=== PATIENT | male | born 1960 | race African-American/Black ===

== ENCOUNTER 2023-08-06 13:35 | Emergency (ER) | payer OTHER ==
[~2023-08-06] VITALS: Ht 182.9 cm; Wt 100.0 kg
[2023-08-06 14:16] VITALS: BP 156/107; PULSE 86; RESP 18; TEMP 98.5; O2SAT 100
[2023-08-06] MEDS ORDERED: METOCLOPRAMIDE HCL 10MG TABLET PO ONE (18:15)
[2023-08-06] MEDS ORDERED: MAGNESIUM/ALUMINUM HYDROXIDE/SIMETHICONE 30ML UDC PO ONE (18:15)
[2023-08-06 19:40] LABS: BASOPHILS % 0.7 % (0.0-2.0); HEMATOCRIT. 41.8 % (42.0-52.0); HEMOGLOBIN. 13.2 g/dL (14.0-18.0); LYMPHOCYTES % 26.6 % (20.0-50.0); MEAN CORPUSCULAR HEMOGLOBIN 27.3 pg (28.0-32.0); MEAN CORPUSCULAR HGB CONC 31.6 g/dL (31.0-37.0); MEAN CORPUSCULAR VOLUME 86.3 fL (80.0-94.0); MEAN PLATELET VOLUME 8.8 fl (7.4-10.4); MONOCYTES % 13.1 % (2.0-8.0); NEUTROPHILS % 52.6 % (40.0-76.0); PLATELET 256 x1000/uL (130-400); RED BLOOD CELL COUNT 4.84 mill/uL (4.7-6.1); WHITE BLOOD COUNT 3.6 x1000/uL (4.5-11.0)
[2023-08-06 19:42] LABS: CHLORIDE 108 mEq/L (98-107); INDEX HEMOLYSI 1 (1-3); INDEX ICTERIC 1 (1-4); INDEX LIPEMIC 1 (1-3); POTASSIUM 4.2 mEq/L (3.5-5.1); SODIUM 139 mEq/L (136-145)
[2023-08-06 19:59] LABS: ALANINE AMINOTRANSFERASE 34 IU/L (13-61); ALBUMIN 3.5 g/dL (3.4-5.0); ASPARTATE AMINOTRANSFERASE 17 IU/L (15-37); BILIRUBIN TOTAL 1.3 mg/dL (0.1-1.0); CALCIUM 9.1 mg/dL (8.5-10.1); CARBON DIOXIDE 31 mEq/L (21-32); CREATININE 1.4 mg/dL (0.6-1.3); GLUCOSE 81 mg/dL (70-105); NT PRO B-TYPE NATRIURETIC PEP 4610 pg/mL (5-125); PROTEIN TOTAL 7.9 g/dL (6.0-8.3); THYROID STIMULATING HORMONE 0.67 uIU/mL (0.36-3.74); TROPONIN I HIGH SENSITIVITY 14 ng/L (<78); UREA NITROGEN BLOOD 13 mg/dL (7-21)
[2023-08-06] MEDS ORDERED: ASPIRIN 81MG TABLET PO ONE (20:15)
[2023-08-06] MEDS ORDERED: DIPHENHYDRAMINE 50MG/ML VIAL IV ONE (20:30)
[2023-08-06] MEDS ORDERED: METOCLOPRAMIDE HCL 10MG/2ML VIAL IV ONE (20:30)
[2023-08-06 20:32] LABS: INR 1.1; PROTHROMBIN TIME 11.8 sec (9.6-11.0)
== END 2023-08-06 21:31 | disposition left against medical advice (07) ==
LOC: ER 13:35
DX: R06.6 Hiccough (principal); I10 Essential (primary) hypertension; E78.00 Pure hypercholesterolemia, unspecified; Z98.890 Other specified postprocedural states
CPT/HCPCS: 99285; 71045; 80053; 83880; 83690; 84443; 85025; 85379; 85610; 85730; 84484; 36415; 93005; J8597

== ENCOUNTER 2025-06-22 04:37 | Inpatient (IN) | payer OTHER ==
[~2025-06-22] VITALS: Ht 185.4 cm; Wt 88.5 kg
[2025-06-22 04:40] VITALS: O2SAT 100
[2025-06-22 05:36] LABS: HEMATOCRIT. 45.0 % (42.0-52.0); HEMOGLOBIN. 14.2 g/dL (14.0-18.0); MEAN PLATELET VOLUME 9.5 fl (7.4-10.4); PLATELET 230 x1000/uL (130-400); RED BLOOD CELL COUNT 5.06 mill/uL (4.7-6.1); RED CELL DISTRIBUTION WIDTH 13.8 % (11.6-14.6)
[2025-06-22] MEDS: ONDANSETRON HCL 4MG/2ML INJ IV ONE (05:48)
[2025-06-22 05:49] LABS: CREATININE 1.3 mg/dL (0.6-1.3)
[2025-06-22] MEDS: ASPIRIN 325MG TABLET PO ONE (05:49)
[2025-06-22 05:50] LABS: TROPONIN I HIGH SENSITIVITY 13 ng/L (3.0-53); UREA NITROGEN BLOOD 13 mg/dL (9-23)
[2025-06-22 05:51] LABS: ASPARTATE AMINOTRANSFERASE 30 IU/L (<34); BILIRUBIN DIRECT 0.3 mg/dL (<=3.0)
[2025-06-22 05:52] LABS: BILIRUBIN TOTAL 0.9 mg/dL (0.1-1.0); PHOSPHORUS 2.8 mg/dL (2.5-4.9); PROTEIN TOTAL 7.6 g/dL (6.0-8.3)
[2025-06-22 05:54] LABS: ETHANOL BLOOD < 10 mg/dL (<10)
[2025-06-22 06:08] LABS: INR 1.2
[2025-06-22 07:30] LABS: TROPONIN I HIGH SENSITIVITY 11 ng/L (3.0-53)
[2025-06-22 09:32] VITALS: BP 112/86; PULSE 70; RESP 20; TEMP 36.3068
[2025-06-22 09:51] VITALS: BP 112/86; PULSE 70; RESP 20; TEMP 36.3; O2SAT 100
[2025-06-22] MEDS ORDERED: ACETAMINOPHEN 325MG TABLET PO PRN ×2 (10:45)
[2025-06-22] MEDS ORDERED: CLONIDINE 0.1MG TABLET PO PRN (10:45)
[2025-06-22] MEDS ORDERED: IPRATROPIUM/ALBUTEROL 0.5-3(2.5)MG/3ML NEB HHN PRN (10:45)
[2025-06-22] MEDS ORDERED: DOCUSATE SODIUM 100MG CAPSULE PO PRN (10:45)
[2025-06-22] MEDS: ENOXAPARIN 40MG/0.4ML SYR SUBCUT SCH (11:51)
[2025-06-22 12:00] VITALS: BP 106/82; PULSE 73; RESP 16; TEMP 36.3; O2SAT 99
[2025-06-22] MEDS ORDERED: SACU1TAB MT (13:40)
[2025-06-22] MEDS ORDERED: CARV3.1242 PO (13:40)
[2025-06-22] MEDS ORDERED: ASPI-1497 PO (13:40)
[2025-06-22] MEDS ORDERED: SUCR1TAB PO (13:40)
[2025-06-22] MEDS ORDERED: CLAR-44 PO (13:40)
[2025-06-22] MEDS ORDERED: AMOX-494 MT (13:40)
[2025-06-22] MEDS ORDERED: SPIR25TA6 PO (13:40)
[2025-06-22 16:00] VITALS: BP_SYST 102; BP_SYST 106; BP_SYST 129; BP_DIAS 62; BP_DIAS 80; BP_DIAS 82; PULSE 60; PULSE 73; PULSE 81; RESP 16; RESP 17; TEMP 36.1; TEMP 36.3; TEMP 36.4; O2SAT 97; O2SAT 99
[2025-06-22] MEDS: ASPIRIN 81MG EC TABLET PO SCH (17:07)
[2025-06-22] MEDS: SPIRONOLACTONE 25MG TABLET PO SCH (17:08)
[2025-06-22 17:30] LABS: TROPONIN I HIGH SENSITIVITY 12 ng/L (3.0-53)
[2025-06-22 17:35] LABS: EOSINOPHILS % MANUAL 3.0 % (0.0-5.0); LYMPHOCYTES % MANUAL 27.0 % (20.0-50.0); MONOCYTES % MANUAL 14.0 % (2.0-8.0); NEUTROPHILS % MANUAL 56.0 % (45.0-75.0); PLATELET ESTIMATE NORMAL
[2025-06-22 18:20] LABS: CLARITY URINE CLEAR (CLEAR); GLUCOSE URINE NEGATIVE (NEGATIVE); KETONES URINE TRACE (NEGATIVE); LEUKOCYTE ESTERASE URINE NEGATIVE (NEGATIVE); NITRITE URINE NEGATIVE (NEGATIVE); OCCULT BLOOD URINE NEGATIVE (NEGATIVE); PH URINE 6.0 (4.5-8.0); PROTEIN URINE TRACE (NEGATIVE); SPECIFIC GRAVITY URINE 1.061 (1.005-1.030); UROBILINOGEN URINE 1.0 E.U./dL (0.2-1.0)
[2025-06-22 18:25] LABS: *AMPHETAMINES SCREEN URINE NEGATIVE (NEGATIVE); *BARBITURATES SCREEN URINE NEGATIVE (NEGATIVE); *BENZODIAZEPINES SCREEN URINE NEGATIVE (NEGATIVE); *COCAINE SCREEN URINE NEGATIVE (NEGATIVE); METHADONE URINE SCREEN NEGATIVE (NEGATIVE); OPIATES URINE SCREEN NEGATIVE (NEGATIVE); PHENCYCLIDINE URINE SCREEN NEGATIVE (NEGATIVE)
[2025-06-22 18:26] LABS: CANNABINOID URINE SCREEN NEGATIVE (NEGATIVE); ECSTASY MDMA SCREEN URINE NEGATIVE (NEGATIVE)
[2025-06-22 18:42] LABS: COLOR URINE YELLOW (YELLOW)
[2025-06-22 18:43] LABS: BACTERIA URINE NONE SEEN; RBC URINE NONE SEEN /hpf (0-2); SQUAMOUS EPITHELIAL CELL URINE FEW /lpf (RARE/1+); WBC URINE 0-2 /hpf (0-2)
[2025-06-22 20:00] VITALS: BP 128/80; PULSE 82; RESP 20; TEMP 36.1; O2SAT 97
[2025-06-22] MEDS: MAGNESIUM/ALUMINUM HYDROXIDE/SIMETHICONE 30ML UDC PO PRN (20:39)
[2025-06-22] MEDS: SACUBITRIL/VALSARTAN 24MG/26MG TABLET PO SCH (20:49)
[2025-06-22] MEDS: SUCRALFATE 1G TABLET PO SCH (21:07)
[2025-06-23] VITALS: BP 123/85; PULSE 72; RESP 20; TEMP 36.2; O2SAT 97
[2025-06-23] MEDS ORDERED: ONDANSETRON HCL 4MG/2ML INJ IV PRN (00:15)
[2025-06-23 00:24] LABS: TROPONIN I HIGH SENSITIVITY 15 ng/L (3.0-53)
[2025-06-23] MEDS: PANTOPRAZOLE SODIUM 40 MG/VIAL IV SCH (00:39)
[2025-06-23 04:00] VITALS: BP 98/71; PULSE 74; RESP 20; TEMP 36.2; O2SAT 98
[2025-06-23 08:00] VITALS: BP 103/75; PULSE 75; RESP 17; TEMP 36.3; O2SAT 98
[2025-06-23] MEDS: LIPASE/PROTEASE/AMYLASE 12,000/38,000/60,000 UNITS CAP DR PO SCH (08:49)
[2025-06-23] MEDS: FUROSEMIDE 40MG/4ML VIAL IVP SCH (11:40)
[2025-06-23 12:00] VITALS: BP 92/67; PULSE 76; RESP 16; TEMP 37.2; O2SAT 100
[2025-06-23] MEDS ORDERED: FURO10VI3 IVP (12:43)
[2025-06-23 16:00] VITALS: BP 105/78; PULSE 87; RESP 17; TEMP 35.6; O2SAT 99
[2025-06-23 20:00] VITALS: BP 118/80; PULSE 85; RESP 20; TEMP 36.2; O2SAT 96
== END 2025-06-23 19:59 | disposition short-term general hospital (02) | DRG 291 ==
LOC: ER 04:37 → 6WST 06:02 → EDBEDREQTM 06:10 → EDBEDREQ 06:10
PROVIDERS: ADMIT Family Medicine Adult Medicine; ATTEND Family Medicine Adult Medicine
DX: I11.0 Hypertensive heart disease with heart failure (principal); I50.23 Acute on chronic systolic (congestive) heart failure; J96.91 Respiratory failure, unspecified with hypoxia; I25.10 Atherosclerotic heart disease of native coronary artery without angina pectoris; K21.9 Gastro-esophageal reflux disease without esophagitis; E78.00 Pure hypercholesterolemia, unspecified; K29.60 Other gastritis without bleeding; I87.2 Venous insufficiency (chronic) (peripheral); Z95.1 Presence of aortocoronary bypass graft
CPT/HCPCS: 36415; 71045; 71275; 80048; 80076; 80305; 80320; 81003; 83735; 83880; 84100; 84443; 84484; 85025; 93005; 93306; 93970; 96374; 99285; J1650; J1938; J2405; J2470; G0480